=== PATIENT | male | born 1955 | race Caucasian/White ===

== ENCOUNTER 2021-04-16 12:42 | Emergency (ER) | payer OTHER, SELFPAY ==
--- NOTE | ~2021-04-16 | XR_ITS ---
XR abdomen obstructive series DATE: 04/16/2021 15:36 INDICATION: Constipation for 2 days TECHNIQUE: Supine and upright AP views COMPARISON: None FINDINGS: The psoas shadows are intact. No visceromegaly is evident. Status post bilateral inguinal herniorrhaphy. Bilateral numerous calcified pelvic phleboliths. There are scattered nondilated gas containing small bowel segments. No bowel obstruction is evident. There is not a prominent amount of fecal material in the colon. No intraperitoneal free air is eviden t. The lung bases appear clear. Heart size appears normal. No pleural effusion is evident. Degenerative changes of the thoracic and lumbar spine. IMPRESSION: Nonspecific abdomen; no evidence of bowel obstruction or free air Reviewed, dictated and finalized at [facility]. Reviewed, dictated and finalized at [facility].
[2021-04-16 12:56] VITALS: BP 110/63; PULSE 104; RESP 14; TEMP 36.6; O2SAT 99
[2021-04-16 13:11] LABS: Basophils Percent Auto 0.4 % (0.2-1.2); Eosinophils Absolute Auto 0.2 K/mm3 (0-0.3); Hematocrit 44.8 % (42.0-52.0); Hemoglobin 15.2 g/dL (14.0-18.0); Immature Granulocyte Absolute 0.03 K/mm3 (0.00-0.031); Immature Granulocyte Percent A 0.3 % (0-0.5); Lymphocytes Absolute Auto 1.58 K/mm3 (0.9-3.2); Lymphocytes Percent Auto 17.5 % (18.3-44.2); Mean Corpuscular HGB Conc 33.9 g/dl (32-36); Mean Corpuscular Hemoglobin 29.4 pg (26-34); Mean Corpuscular Volume 86.7 fl (80-100); Mean Platelet Volume 10.2 fl (7.4-10.4); Monocytes Absolute Auto 0.8 K/mm3 (0.1-0.6); Monocytes Percent Auto 8.3 % (2.6-8.5); Neutrophils Absolute Auto 6.4 K/mm3 (1.3-6.7); Neutrophils Percent Auto 71.5 % (45.5-73.1); Platelet Count Result 201 k/mm3 (150-375); Red Blood Count 5.17 M/mm3 (4.6-6.20); Red Cell Distribution Width 11.6 % (11.5-14.5)
[2021-04-16 13:14] LABS: Add Urine Microscopic? NO; Appearance Urine Clear (Clear); Bilirubin Urine Negative (Negative); Blood Urine Negative (Negative); Color Urine Yellow (Yellow); Glucose Urine UA Negative (Negative); Ketones Urine Negative (Negative); Leukocyte Esterase Ur Negative LEU/UL (Negative); Nitrate Urine Negative (Negative); Protein Urine Negative (Negative); Specific Grav Ur 1.013 (1.001-1.035); Urobilinogen Urine Negative mg/dL (<2.0)
[2021-04-16 13:25] LABS: Alanine Aminotransferase 20 U/L (4-50); Albumin Level 4.5 g/dL (3.5-5.1); Alkaline Phosphatase 78 U/L (38-126); Anion Gap 5 mmol/L (8-16); Aspartate Amino Transferase 30 U/L (17-59); Bilirubin,Total 0.7 mg/dL (0.2-1.3); Blood Urea Nitrogen 11 mg/dL (9-20); Calcium 9.6 mg/dL (8.4-10.2); Carbon Dioxide 34 mmol/L (22-30); Chloride 96 mmol/L (98-107); Estimated Glomerular Filt Rate > 60; Glucose 102 mg/dL (75-110); Lipase 90 U/L (23-300); Potassium 3.6 mmol/L (3.4-5.0); Sodium 135 mmol/L (137-145)
[2021-04-16 15:13] VITALS: BP 110/63; PULSE 104; RESP 18; TEMP 36.6; O2SAT 99
[2021-04-16] MEDS: SODIUM CHLORIDE 0.9% IV 1,000 ML 999 ML IV CONT (15:51)
[2021-04-16 15:58] VITALS: BP 135/77; BP 136/73; PULSE 63
[2021-04-16 15:59] VITALS: BP 128/81; PULSE 66
--- NOTE | 2021-04-16 16:16 | ED.GENADULT ---
HPI - General Adult General Chief complaint: Back Pain/Injury Stated complaint: BACK PAIN, ?CONSTIPATION Time Seen by Provider: 04/16/21 15:05 Source: patient, family and RN notes reviewed Mode of arrival: ambulatory Limitations: no limitations History of Present Illness HPI narrative: Patient is a 65-year-old male who presents to emergency department for evaluation of diarrhea and low back pain since Wednesday patient was concerned that he may be constipated and took an enema and stool softeners has had loose stools since also notes that he did strain his back while walking his dog patient was concerned that he may be constipated secondary to taking narcotics which she takes for low back pain. Patient denies any fever chills nausea vomiting night sweats or other complaints presents in no distress pain is worse with activity and movement on arrival does not appear distressed or uncomfortable Related Data Home Medications Medication Instructions Recorded Confirmed amlodipine 10 mg tablet 10 mg PO DAILY 09/02/20 09/02/20 gabapentin 300 mg capsule 300 mg PO BID 09/02/20 09/02/20 hydrochlorothiazide 25 mg tablet 25 mg PO DAILY 09/02/20 09/02/20 hydrocodone 10 mg-acetaminophen 1 tablet PO Q8H PRN 09/02/20 09/02/20 325 mg tablet lisinopril 40 mg tablet 40 mg PO DAILY 09/02/20 09/02/20 naproxen 500 mg tablet 500 mg PO BID 09/02/20 09/02/20 orphenadrine citrate 100 mg 100 mg PO Q12H 09/02/20 09/02/20 tablet,extended release Allergies Allergy/AdvReac Type Severity Reaction Status Date / Time codeine AdvReac Unknown N/V, CAN Verified 04/16/21 15:15 TAKE HYDROCODONE diphenhydramine AdvReac Unknown sleepy Verified 04/16/21 15:15 Review of Systems Review of Systems: All systems reviewed & are unremarkable except as noted in HPI and below PMFSH Past Medical History Medical History Broken ankle HTN (hypertension) Recurrent irreducible right inguinal hernia Surgical History Surgical History H/O hernia repair x 2 in the groin Pilonidal cyst x3 Family History Family History Father Diabetes mellitus Hypertension Cerebrovascular accident Mother Heart disease Mother No problems noted. 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 HEAD: Normocephalic, atraumatic. EYES: PERRLA and EOMI. ENT: Nares clear, no rhinorrhea or epistaxis. Mucous membranes moist. CHEST: Clear to auscultation. No respiratory distress. No wheezes rales or rhonchi HEART: Regular rate and rhythm. No murmur heard. Normal peripheral pulses. ABDOMEN: Soft, nontender, nondistended EXTREMITIES: Normal range of motion. No edema. SKIN: Warm, dry, no rash. NEURO: No focal deficits. Alert and oriented x3. Cranial nerves II through XII grossly intact. Normal speech and gait PSYCH: Normal mood and affect. Course Course Emergency Course: Patient evaluated in the emergency department no high risk changes in the evaluation advised to follow-up with primary care for further evaluation given reasons to return patient is afebrile nontoxic-appearing no distress. Vital Signs Vital signs: Vital Signs Temperature 97.9 F 04/16/21 12:56 Pulse Rate 104 H 04/16/21 12:56 Respiratory Rate 14 04/16/21 12:56 Blood Pressure 110/63 04/16/21 12:56 Pulse Oximetry 99 04/16/21 12:56 Temperature 97.9 F 04/16/21 15:13 Pulse Rate 66 04/16/21 15:59 Respiratory Rate 18 04/16/21 15:13 Blood Pressure 128/81 04/16/21 15:59 P
[2021-04-16 16:55] VITALS: BP 128/81; PULSE 66; RESP 18; TEMP 36.6; O2SAT 99
--- NOTE | 2021-04-24 15:03 | PC.NURSE ---
LATE ENTRY This note is being entered to document information to the patient's record. The following information was omitted on [04/16/21], by [Arabella Pang]. NS stop time [id number].
== END 2021-04-16 16:55 | disposition home or self-care (01) ==
PROVIDERS: Emergency Provider Emergency Medicine
DX: M54.5 Low back pain (principal); I10 Essential (primary) hypertension
CPT/HCPCS: 36415; 74019; 80053; 81003; 83690; 85025; 96360; 99283; J3010; J7030